=== PATIENT | male | born 1965 | race Caucasian/White ===

== ENCOUNTER → 2017-06-28 | Outpatient (CLI) | payer OTHER, MEDICAID ==
[~2017-06-28] MED LIST: AUGMENTIN 875875 MG PO; CATAPRES0.1 MG PO; CLONIDINE0.1 PO; COREG25 MG PO; COREG3.125 MG PO; KLONOPIN1 MG PO; LEVAQUIN 500 M500 MG PO; LEVOTHYROXINE 0.1 MG PO; LEVOTHYROXINE100 MC1 IV; LIPITOR 20 MG T20 M1 PO; NORVASC5 MG PO; RISPERDAL 3 MG T3 MG PO; SEROQUEL300 MG PO; STELAZINE PO; TRIHEXYPHENIDYL5 MG PO; VIMPAT100 MG PO
== END ==
LOC: M.ULTRA 09:12
DX: I12.9 Hypertensive chronic kidney disease with stage 1 through stage 4 chronic kidney disease, or unspecified chronic kidney disease (principal); N18.9 Chronic kidney disease, unspecified

== ENCOUNTER → 2017-09-20 | Outpatient (CLI) | payer OTHER, MEDICAID | LOC: M.ULTRA 07:03 | DX: N18.4 Chronic kidney disease, stage 4 (severe) (principal); N28.1 Cyst of kidney, acquired; I12.9 Hypertensive chronic kidney disease with stage 1 through stage 4 chronic kidney disease, or unspecified chronic kidney disease ==

== ENCOUNTER → 2020-09-03 | Outpatient (CLI) | payer MEDICARE, MEDICAID | LOC: M.MRI 08-28 09:12 | PROVIDERS: ATTEND Registered Nurse Diabetes Educator | DX: M50.21 Other cervical disc displacement, high cervical region (principal); M47.812 Spondylosis without myelopathy or radiculopathy, cervical region; M48.02 Spinal stenosis, cervical region; K60.2 Anal fissure, unspecified; G40.109 Localization-related (focal) (partial) symptomatic epilepsy and epileptic syndromes with simple partial seizures, not intractable, without status epilepticus; R29.2 Abnormal reflex; R26.9 Unspecified abnormalities of gait and mobility; R53.1 Weakness ==